=== PATIENT | female | born 1980 | race Caucasian/White ===

== ENCOUNTER 2016-11-29 21:17 | Emergency (ER) | payer BC ==
[~2016-11-29] VITALS: Ht 154.9 cm; Wt 66.7 kg
[2016-11-29 21:44] VITALS: BP 124/79
--- NOTE | 2016-11-29 21:50 | NUR ---
Patient to bed 08.
--- NOTE | 2016-11-29 21:59 | NUR ---
PATIENT PRESENTS TO ED WITH RLQ PAIN . PT STATES SHE VISITED THE CLINIC WHO STATED SHE MAY HAVE APPENDICITIS AND RECOMMENDED SHE VISIT ER FOR FURTHER EVALUATION . DENIES N/V/D; SKIN IS PINK/WARM/DRY; AAOX4 WITH EVEN AND STEADY GAIT; LUNGS CLEAR BL; HR EVEN AND REGULAR; PT DENIES ANY FEVER, CP, SOB, OR COUGH AT THIS TIME; PATIENT STATES PAIN OF 8/10 AT THIS TIME; VSS; PATIENT POSITIONED FOR COMFORT; HOB ELEVATED; BEDRAILS UP X2; BED DOWN. ER MD MADE AWARE OF PT STATUS.
--- NOTE | 2016-11-29 22:03 | NUR ---
Patient taken to CT via wheelchair per tech.
--- NOTE | 2016-11-29 22:14 | NUR ---
Patient back from CT via wheelchair per tech.
--- NOTE | 2016-11-29 22:20 | NUR ---
Dr. Hyatt evaluating patient at bedside.
[2016-11-29 23:29] VITALS: BP 124/79
--- NOTE | 2016-11-29 23:29 | NUR ---
PER DR. SHOOK, Patient discharged with v/s stable. Written and verbal after care instructions given and explained. Patient alert, oriented and verbalized understanding of instructions. Ambulatory with steady gait. All questions addressed prior to discharge. ID band removed. Patient advised to follow up with PMD. Rx of [facility] MILK OF MAGNESIA given. Patient educated on indication of medication including possible reaction and side effects. Opportunity to ask questions provided and answered. D/C NOTE ONLY
== END 2016-11-29 23:29 | disposition home or self-care (01) ==
LOC: MED 21:17
DX: K59.00 Constipation, unspecified (principal); R03.0 Elevated blood-pressure reading, without diagnosis of hypertension